=== PATIENT | male | born 1965 | race Caucasian/White ===

== ENCOUNTER 2022-07-23 09:33 | Outpatient (REF) | payer BC, SELFPAY ==
--- NOTE | 2022-07-23 | EMG_ITS ---
Bilateral tibial and peroneal motor studies were performed. Bilateral sural and medial and lateral plantar sensory studies were performed. Tibial H reflexes were obtained and paraspinal muscles were tested with a needle. 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 MD HEMA Garcia/MODL / [id number]
== END 2022-07-23 09:34 | disposition home or self-care (01) ==
LOC: HO.NEURO 09:33
PROVIDERS: PCP Internal Medicine; Visit Provider Internal Medicine
DX: G57.90 Unspecified mononeuropathy of unspecified lower limb (principal)
CPT/HCPCS: 95886; 95913